=== PATIENT | female | born 1980 | race Caucasian/White ===

== ENCOUNTER → 2024-01-17 09:32 | Outpatient (REF) | payer OTHER, SELFPAY ==
[2024-01-17 09:59] LABS: % Basophils 3.2 % (0-2); % Eosinophils 4.2 % (0-6); % Immature Granulocytes 0.8 % (0-0.5); % Monocytes 6.5 % (1.7-9.3); % Neutrophils 57.3 % (42.2-75.2); Absolute Basophils 0.3 10^3/uL (0-0.2); Absolute Eosinophils 0.4 10^3/uL (0-0.7); Absolute Immature Granulocytes 0.1 10^3/uL (0-0.05); Absolute Lymphocytes 2.5 10^3/uL (1.2-3.4); Absolute Monocytes 0.6 10^3/uL (0.1-0.6); Absolute Neutrophils 5.1 10^3/uL (1.4-6.5); Hematocrit 51.7 % (37.0-47.0); Hemoglobin 16.6 g/dL (12.0-16.0); Mean Corp Hgb Conc. 32.1 g/dL (33.0-37.0); Mean Corpuscular Hgb 26.9 pg (27.0-31.0); Mean Corpuscular Volume 83.7 fL (81.0-99.0); Mean Platelet Volume 9.6 fL (7.4-10.4); Nucleated Red Blood Cells % 0 %; Platelet Count 681 10^3/uL (130-400); Red Blood Cell Count 6.18 10^6/uL (4.20-5.40); Red Cell Dist. Width 14.6 % (11.5-14.5); White Blood Cell Count 8.8 10^3/uL (4.8-10.8)
[2024-01-17 10:10] LABS: INR 1.07; PT 13.9 Sec (11.4-14.6)
[2024-01-17 10:18] VITALS: BP 127/68; BP_SYST 77
== END ==
LOC: RADI 09:32
PROVIDERS: ATTENDING PHYSICIAN Internal Medicine Hematology & Oncology; FAMILY PHYSICIAN Nurse Practitioner Adult Health
DX: D47.3 Essential (hemorrhagic) thrombocythemia (principal); Z01.812 Encounter for preprocedural laboratory examination
CPT/HCPCS: 88305; 88311; 88312; 36415; 38222; 77012; 85025; 85610; 88313; 88341; 88342

== ENCOUNTER 2024-06-16 10:51 | Outpatient (RCR) | payer OTHER, SELFPAY ==
[2024-06-16 11:01] VITALS: BP 114/68
[2024-06-16 11:50] VITALS: BP 102/61
[2024-06-16 11:51] VITALS: BP 99/57
== END 2024-06-17 08:27 | disposition home or self-care (01) ==
LOC: OID 10:51
PROVIDERS: ATTENDING PHYSICIAN Internal Medicine; FAMILY PHYSICIAN Nurse Practitioner Adult Health
DX: D47.1 Chronic myeloproliferative disease (principal)
CPT/HCPCS: 99195

== ENCOUNTER 2024-07-09 17:57 | Emergency (ER) | payer OTHER, SELFPAY ==
[2024-07-09 18:00] VITALS: BP 137/83
--- NOTE | 2024-07-09 18:13 | EDRN ---
Gonzalo MERRITT in room w/ pt.
--- NOTE | 2024-07-09 18:27 | ED.GENMED ---
History of Present Illness
General
Chief Complaint: Chest Pain
Source: patient
Exam Limitations: none
Time Seen by Provider: 07/09/24 18:05
History of Present Illness
History of Present Illness:
This is a 44 year old female that comes in with c/o chest pain. States that for the past 1-2 weeks when she lays down to put her son to bed as she sings to him she developed chest pressure. States that she feels her heart beating and that she has to
cough. States that after this it will feel ok again. States that she felt over the past few days this was getting worse. States that she feels SOB with the pain. Denies any fever, chills, abd pain, nausea, vomiting, diarrhea, headache, dizziness,
urinary buring.
Past History
Past History
ED Past Medical History: Psychiatric (Depression) and Other (Essential thrombocytosis, migraine with aura, Graves disease, Polycythemia)
ED Past Surgical History: Other (Right breast lympectomy)
Social History
Tobacco: Non-smoker
Alcohol: Occasional
Drug: None
Personal:
Living: with family
Review of Systems
Review of Systems
All Other Systems: ROS reviewed and negative except as documented in HPI and ROS
Constitutional: Reports no symptoms; Denies fever or chills
EENT: Reports no symptoms
Respiratory: Reports trouble breathing (with pain); Denies cough
Cardiac: Reports chest pain
ABD/GI: Reports no symptoms; Denies abdominal pain, nausea, vomiting or diarrhea
: Reports no symptoms; Denies dysuria, frequency or urgency
Musculoskeletal: Reports no symptoms
Skin: Reports no symptoms
Neurological: Reports no symptoms; Denies dizzy or headache
Psychiatric: Reports no symptoms
Phy Exam
General Physical Exam
General Presentation: well appearing and no apparent distress
General age: appears stated age
General Skin: warm and dry
General Habitus: normal
General Mental: alert
General Hydration: appears well hydrated
ENT Exam
ENT Exam: TM's normal, pharynx normal and neck supple
Eye Exam
Eye Exam: EOMI
Cardiovascular Exam
Cardiovascular Exam: regular rate/rhythm, no edema, no murmur and normal peripheral pulses
Pulmonary Exam
Pulmonary Exam: lungs clear, no respiratory distress, no rales, chest non tender, no crackles, no rhonchi, no wheezing and no cough
Gastrointestinal Exam
Gastrointestinal Exam: normal bowel sounds, non tender, soft, no organomegaly, no pulsatile mass and non distended
Musculoskeletal Exam
Musculoskeletal Exam: full ROM and no edema
Skin Exam
Skin Exam: normal color, warm/dry, no rash and no petechia
Psychiatric Exam
Psychiatric Exam: normal mood/affect
Scores
Heart Score for Chest Pain Patients
STEMI patient?: No
History: Slightly or Non-Suspicious
ECG: Normal
Age: </= 45 years
Risk Factors: No Risk Factors
Troponin: </= Normal Limit
Heart Score for Chest Pain Patients: 0
Heart Score Risk: 2.5% MACE over next 6 weeks
Course
Orders/Labs/Results
Orders:
Orders
07/09/24 17:59
Electrocardiogram (*1) Urgent
Reason for Study: Chest Pain
EKG- Treatment ONCE
Test Result ONCE
07/09/24 18:26
CR Chest - 2 Views Urgent
Comment:
Reason For Exam: Chest pain
07/09/24 19:30
Complete Blood Count/With Diff Urgent
Comprehensive Metabolic Panel Urgent
D-Dimer Urgent
HCG, Serum Qualitative Screen Urgent
Comment: Notify provider if positive test present
Troponin I Urgent
Abnormal Lab Results
07/09/24
19:30
MCV 71.5 L fL
(81.0-99.0)
MCH 23.0 L pg
(27.0-31.0)
MCHC 32.2 L g/dL
(33.0-37.0)
RDW 17.9 H %
(11.5-14.5)
Plt Count 575 H 10^3/uL
(130-400)
Abs Immat Gran (auto) 0.1 H 10^3/uL
(0-0.05)
Absolute Monos (auto) 0.7 H 10^3/uL
(0.1-0.6)
Immature Gran % 0.7 H %
(0-0.5)
Monocytes % 9.5 H %
(1.7-9.3)
07/09/24 19:30
07/09/24 19:30
Plt elevation. d-dimer negative. Troponin <0.012, HCG negative.
Vital Signs
Initial and Last Documented VS:
Initial Vital Signs
Temp Pulse Resp BP Pulse Ox
98.4 F 74 16 137/83 99
07/09/24 18:00 07/09/24 18:00 07/09/24 18:00 07/09/24 18:00 07/09/24 18:00
Last Documented Vital Signs
Temp Pulse Resp BP Pulse Ox
98.4 F 67 18 122/77 97
07/09/24 18:00 07/09/24 19:30 07/09/24 19:30 07/09/24 19:30 07/09/24 19:30
MDM/Problems Addressed
Differential Diagnosis Includes:
PVC's, Atrial fib
MDM/Problems Addressed:
This is a 44 year old female that comes in with c/o chest pressure. State that for the past 2-3 weeks when she lays down she has chest pressure. States that it has been getting worse and that she has SOB with the pain.
Will get labs, Chest x-ray.
Back into see patient. Explained that her blood work shows very sight anemia. Otherwise her labs are normal. Chest x-ray is normal and her D-dimer is negative. Troponin is normal. Patient to follow up with the family doctor. Explained that they may
went to have her wear a Holter monitor to see if there is any ectopy. Patient to return with any concerns.
Chronic conditions affecting care:
NA
Acute Exacerbation and/or Progression of Chronic Illness:
NA
*Radiology
Radiology exam reviewed: preliminary read by ED provider (Chest- Negative for active disease)
*Pulse Oximetry
Patient hypoxic: no
*EKG
Interpreted by ED Provider?: Yes
Heart Rate: 72
Rate: normal
Rhythm: sinus
Warren: normal axis
Interval: normal interval
QRS Pattern: normal QRS
Ischemia: no ischemia
*Automatic Washer Mechanic Interpretation
Rate: normal
Heart Rate: 71
Rhythm: sinus
*Critical Care Note
Total Time (30-74mins, 75-104mins- exclusive of procedures): Not Applicable
ED Attending Note
-
Portions of this chart may have been created with voice recognition software.� Occasional wrong word or��sound alike� substitutions may have occurred due to the inherent limitations of voice recognition software.
Discharge Plan
Departure
Patient Disposition: Home (Routine Discharge)
Date of Disposition: 07/09/24
Time of Disposition: 20:17
Patient with high blood pressure during this ER visit?: No
Condition: Good
Covid-19: Not Applicable
Discharge Problem:
Chest pain, Shortness of breath
Instructions: Shortness of breath, Chest Pain PCP Follow Up
Prescriptions:
No Action
aspirin [Aspir-Low] 81 MG tablet,delayed release (DR/EC)
81 mg PO DAILY
sertraline 50 mg Tablet
50 mg PO DAILY
Besremi 500 mcg/mL Syringe
100 mcg SC Q2W
acetaminophen [Tylenol Ex Str Rapid Release] 500 mg Tablet
500 mg PO DAILY
Referrals:
Kymberly Schmitz CRNP [Family Provider] - Follow up in 2-3 days
Activity Restrictions/Additional Instructions:
As discussed, your blood work shows very slight anemia. Otherwise your labs are normal. Your D-dimer and troponin are both negative and your chest x-ray is normal. Please follow up with the family doctor as they may wish to have your wear a Holter
monitor. IF YOU HAVE INCREASED OR CHANGING PAIN, OR YOU HAVE ANY OTHER CONCERNS PLEASE RETURN TO THE EMERGENCY ROOM.
Interventions
Interventions:
*Risk Screen - Suicide Last Done: 07/09/24 18:00
*General Assessment Last Done: 07/09/24 18:45
*Neglect/Abuse Screening Last Done: 07/09/24 18:00
ED- Fall Risk Assessment Last Done: 07/09/24 18:45
*ED COVID-19 Vaccine History Last Done: 07/09/24 18:45
Discharge Date and Time
Print Language: [place]ET[place]
[2024-07-09 18:45] VITALS: BMI 25.3
[2024-07-09 19:00] VITALS: BP 110/71
[2024-07-09 19:30] VITALS: BP 122/77
[2024-07-09 19:37] LABS: % Basophils 1.4 % (0-2); % Eosinophils 2.8 % (0-6); % Immature Granulocytes 0.7 % (0-0.5); % Lymphocytes 31.5 % (20.5-51.1); % Monocytes 9.5 % (1.7-9.3); % Neutrophils 54.1 % (42.2-75.2); Absolute Basophils 0.1 10^3/uL (0-0.2); Absolute Eosinophils 0.2 10^3/uL (0-0.7); Absolute Immature Granulocytes 0.1 10^3/uL (0-0.05); Absolute Lymphocytes 2.3 10^3/uL (1.2-3.4); Absolute Monocytes 0.7 10^3/uL (0.1-0.6); Absolute Neutrophils 3.9 10^3/uL (1.4-6.5); Hematocrit 37.3 % (37.0-47.0); Mean Corp Hgb Conc. 32.2 g/dL (33.0-37.0); Mean Corpuscular Volume 71.5 fL (81.0-99.0); Mean Platelet Volume 10.1 fL (7.4-10.4); Nucleated Red Blood Cells % 0 %; Platelet Count 575 10^3/uL (130-400); Red Blood Cell Count 5.22 10^6/uL (4.20-5.40); Red Cell Dist. Width 17.9 % (11.5-14.5); White Blood Cell Count 7.3 10^3/uL (4.8-10.8)
[2024-07-09 19:54] LABS: D-Dimer < 0.27 ug/mlFEU (0.00-0.50)
[2024-07-09 19:55] LABS: HCG, Serum Qualitative Screen Negative
[2024-07-09 20:00] VITALS: BP 117/74
[2024-07-09 20:02] LABS: Troponin I < 0.012 ng/ml
[2024-07-09 20:05] LABS: ALT (SGPT) 23 U/L (0-35); AST (SGOT) 24 U/L (14-36); Albumin 4.4 g/dl (3.5-5.0); Alkaline Phosphatase 63 U/L (38-126); Blood Urea Nitrogen 15 mg/dl (7-17); Calcium 9.9 mg/dl (8.4-10.2); Carbon Dioxide 26 mmol/L (22-30); Chloride 104 mmol/L (98-107); Estimated Creatinine Clearance 89 ml/min; Glucose 96 mg/dl (70-99); Potassium 4.8 mmol/L (3.5-5.1); Sodium 136 mmol/L (135-145); Total Bilirubin 0.4 mg/dl (0.2-1.3); Total Protein 7.1 g/dl (6.3-8.2); eGFR > 60.00
[2024-07-09 20:41] VITALS: BP 113/79
== END 2024-07-09 20:44 | disposition home or self-care (01) ==
LOC: EMR 17:57
PROVIDERS: Clinical Nurse Specialist Family Health; Emergency Medicine; EMERGENCY PHYSICIAN Emergency Medicine; FAMILY PHYSICIAN Nurse Practitioner Adult Health
DX: R07.89 Other chest pain (principal); R06.02 Shortness of breath; R05.9 Cough, unspecified; D64.9 Anemia, unspecified; F32.A Depression, unspecified
CPT/HCPCS: 99283; 71046; 80053; 84484; 84703; 85025; 85379; 93005

== ENCOUNTER → 2024-08-01 11:39 | Outpatient (REF) | payer OTHER, SELFPAY ==
[2024-08-01 13:57] LABS: Procalcitonin < 0.05 ng/ml (0.0-0.25)
== END ==
LOC: REG 11:39
PROVIDERS: FAMILY PHYSICIAN Nurse Practitioner Adult Health
DX: R91.8 Other nonspecific abnormal finding of lung field (principal); R05.9 Cough, unspecified
CPT/HCPCS: 36415; 84145; 87040; 87086; 87327; 87449

== ENCOUNTER → 2024-10-15 13:24 | Outpatient (REF) | payer OTHER, SELFPAY | LOC: RCS 13:24 | PROVIDERS: ATTENDING PHYSICIAN Nurse Practitioner Adult Health | DX: R00.2 Palpitations (principal) | CPT/HCPCS: 93225; 93226 ==

== ENCOUNTER → 2025-10-14 09:59 | Outpatient (REF) | payer OTHER, SELFPAY | LOC: WDC 09:59 | PROVIDERS: ATTENDING PHYSICIAN Nurse Practitioner Adult Health | DX: N64.4 Mastodynia (principal) | CPT/HCPCS: 76642; 77062; 77066 ==